=== PATIENT | male | born 1985 | race Caucasian/White ===

== ENCOUNTER 2020-11-28 11:49 | Emergency (ER) | payer OTHER ==
[2020-11-28 14:57] LABS: BASOPHIL 0.6 % (0-2); EOSINOPHIL 0.2 % (0-5); HCT 45.1 % (42.0-52.0); HGB 15.3 g/dl (13.2-18.0); LYMPHOCYTE 19.4 % (15-48); MCH 30.9 pg (25.0-31.0); MCHC 33.9 g/dL (32.0-36.0); MCV 91.1 fL (78.0-100.0); MPV 10.5 fL (6.0-9.5); NEUTROPHIL 70.2 % (41-80); NRBC 0; PLT 167 K/uL (150-400); RBC 4.95 M/uL (4.70-6.00); RDW 12.8 % (11.5-14.0); WBC 8.4 K/uL (4.0-10.5)
[2020-11-28 14:57] LABS: BILIRUBIN NEGATIVE (NEGATIVE); BLOOD NEGATIVE Ery/uL (NEGATIVE); CLARITY CLEAR (CLEAR); COLOR YELLOW (YELLOW); GLUCOSE (U) NORMAL (NORMAL); LEUKOCYTES NEGATIVE Leu/uL (NEGATIVE); NITRITE NEGATIVE (NEGATIVE); PROTEIN NEGATIVE (NEGATIVE); UROBILINOGEN 0.2 mg/dL (0.2-1.0)
[2020-11-28 15:53] LABS: ALBUMIN 4.3 g/dL (3.4-5.0); BILIRUBIN - TOTAL 0.8 mg/dL (0.2-1.0); BUN/CREAT RATIO (CALC) 19.3 RATIO; CREATININE 1.19 mg/dL (0.67-1.17); GLOBULIN (CALCULATION) 3.1 g/dL; TOTAL PROTEIN 7.4 g/dL (6.4-8.2)
[2021-01-15] MEDS ORDERED: ASCORBIC ACID500 MG PO (14:52)
[2021-01-15] MEDS ORDERED: DAILY VALUE1 EACH PO (14:52)
[2021-01-15] MEDS ORDERED: LISINOPRIL40 MG PO (14:52)
[2021-01-15] MEDS ORDERED: FIBER PO (14:53)
[2021-01-22] MEDS ORDERED: ACETAMINOPHEN500 M1 PO (09:48)
[2021-01-22] MEDS ORDERED: COLACE100 MG PO (09:48)
[2021-01-22] MEDS ORDERED: MOTRIN600 MG PO (09:48)
[2021-01-22] MEDS ORDERED: OXY-IR 5MG5 MG PO (09:48)
== END 2020-11-28 20:45 | disposition home or self-care (01) ==
LOC: FER 11:49
PROVIDERS: Physician Assistant
DX: R10.9 Unspecified abdominal pain (principal); R94.4 Abnormal results of kidney function studies; R11.0 Nausea; R42 Dizziness and giddiness; I10 Essential (primary) hypertension; Z79.899 Other long term (current) drug therapy
CPT/HCPCS: 36415; 80053; 81001; 83690; 85025; J2405; J7040; Q9967

== ENCOUNTER → 2021-01-22 | Day surgery (SDC) | payer OTHER ==
[~2021-01-22] VITALS: Ht 188 cm; Wt 127.5 kg
[~2021-01-22] MED LIST: ACETAMINOPHEN500 M1 PO; ASCORBIC ACID500 MG PO; COLACE100 MG PO; DAILY VALUE1 EACH PO; FIBER PO; LISINOPRIL40 MG PO; MOTRIN600 MG PO; OXY-IR 5MG5 MG PO
[2021-01-22 08:06] LABS: BUN/CREAT RATIO (CALC) 12.6 RATIO; CREATININE 0.95 mg/dL (0.67-1.17); POTASSIUM 4.2 mmol/L (3.5-5.1)
== END | disposition home or self-care (01) ==
LOC: FAS 06:54
PROVIDERS: Anesthesiology
DX: K80.10 Calculus of gallbladder with chronic cholecystitis without obstruction (principal); E66.9 Obesity, unspecified; I10 Essential (primary) hypertension; J30.9 Allergic rhinitis, unspecified; Z68.36 Body mass index [BMI] 36.0-36.9, adult; Z79.899 Other long term (current) drug therapy
CPT/HCPCS: 36415; 80048; 93005; J1100; J1170; J1644; J2250; J2370; J2405; J2704; J2710; J3010; J7120